=== PATIENT | male | born 1985 | race Caucasian/White ===

== ENCOUNTER 2024-06-27 14:16 | Emergency (ER) | payer BC ==
[2024-06-27] MEDS ORDERED: Aspirin Chewable 81 MG TAB ONE (14:28)
[2024-06-27 15:10] LABS: #Basophils 0.11 10x3/uL (0.0-0.2); #Eosinophils 0.12 10x3/uL (0.0-0.5); #Monocytes 0.79 10x3/uL (0.0-1.1); #Neutrophils 5.71 10x3/uL (1.5-8.4); %Basophils 0.9 % (0.0-2.0); %Lymphocytes 41.6 % (18.0-47.0); %Monocytes 6.8 % (0.0-10.0); %Neutrophils 49.4 % (40.0-75.0); Hematocrit 41.9 % (38.8-50.0); Hemoglobin 13.6 g/dL (13.5-17.5); Mean Corpuscular HGB CONC 32.5 g/dL (32.0-36.0); Mean Corpuscular Hemoglobin 28.9 pg (27.0-33.0); Mean Platelet Volume 9.4 fL (7.4-10.4); Platelet Count 524 10x3/uL (150-450); RBC Distribution Width 12.3 % (11.5-14.5); Red Blood Cell (RBC) Count 4.71 10x6/uL (4.32-5.72); White Blood Cell (WBC) Count 11.59 10x3/uL (3.5-10.5)
[2024-06-27 15:29] LABS: ALT (SGPT) 20 U/L (Less than 45); AST (SGOT) 32 U/L (11-34); Albumin 5.2 g/dL (3.1-4.5); Alkaline Phosphatase 77 U/L (40-110); Anion Gap 18 mmol/L (10-20); BUN (Urea Nitrogen) 7 mg/dL (8.9-20.6); Bilirubin, Total 0.7 mg/dL (0.3-1.2); Calc. Creatinine Clearance 0 mL/min (70-130); Calcium 10.1 mg/dL (7.8-10.44); Carbon Dioxide 21 mmol/L (22-29); Chloride 104 mmol/L (98-107); Estimated GFR 104; Glucose 84 mg/dL (70-105); Potassium 3.9 mmol/L (3.5-5.1); Protein, Total 8.2 g/dL (6.0-8.3); Sodium 139 mmol/L (136-145)
[2024-06-27 15:35] LABS: Troponin I 0.015 ng/mL (< 0.028)
== END 2024-06-27 16:12 | disposition home or self-care (01) ==
LOC: CSHERS 14:16
DX: R07.81 Pleurodynia (principal); R05.9 Cough, unspecified; I10 Essential (primary) hypertension; F17.200 Nicotine dependence, unspecified, uncomplicated; Z79.899 Other long term (current) drug therapy
CPT/HCPCS: 36416; 71045; 80053; 84484; 85025; 93005